=== PATIENT | male | born 2005 | race Caucasian/White ===

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

== ENCOUNTER 2023-08-22 22:44 | Emergency (ER) | payer SELFPAY ==
[2023-08-22 22:45] VITALS: BP 121/61; PULSE 68; RESP 18; TEMP 36.8; O2SAT 98; BMI 27.9
[2023-08-23 00:09] VITALS: BP 116/78; PULSE 70; RESP 15; TEMP 36.4; O2SAT 98
--- NOTE | 2023-08-23 01:11 | ED_ITS ---
HPI - Skin/Abscess/Foreign Bdy General Chief complaint: Skin/Abscess/Foreign Body Stated complaint: chemical burn on abdomen Time Seen by Provider: 08/23/23 00:10 Source: patient Mode of arrival: ambulatory Limitations: no limitations History of Present Illness ED Provider: Dr. Pauline Mack HPI narrative: Patient comes to the emergency room complaining of a chemical burn to the abdomen. Patient states that over 24 hours ago, patient was working with chemicals, spelled acetone on his shirt. Patient states that he was wearing a shirt in a back brace, spilled acetone on his shirt and did not take it off for several hours. Yesterday all day, patient was complaining of irritation in his skin on the abdomen. Patient's mother applied aloe vera. Patient states that the aloe vera made it worse. 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 Patient is unaware if he is up-to-date with Tdap Related Data Previous Rx's ?Medication ?Instructions ?Recorded bacitracin 500 unit/gram topical 1 appl topical 5XD #30 grams 08/23/23 ointment ibuprofen 600 mg tablet 600 mg PO Q8H PRN fever or pain 08/23/23 #20 tabs Allergies Allergy/AdvReac Type Severity Reaction Status Date / Time No Known Allergies Allergy Verified 08/22/23 22:48 [No Known Allergies*] Review of Systems Review of Systems: Constitutional : No Weight loss, No Fever, No Chills, No Night Sweats, No Fati roni, No Malaise ENT/Mouth : No Hearing loss, No Ear Pain, No Nasal Congestion, No Sinus Pain, No Hoarseness, No sore throat, No Rhinorrhea, No Swallowing Difficulty Eyes: No Eye Pain, No Swelling, No Redness, No Foreign Body, No Discharge, No Vision Changes Cardiovascular : No Chest Pain, No SOB, No Dyspnea on Exertion, No Orthopnea, No Edema, No Palpitations Respiratory : No Cough, No Sputum, No Wheezing, No Smoke Exposure, No Dyspnea Gastrointestinal : No Nausea, No Vomiting, No Diarrhea, No Constipation, No abdominal Pain, No Hematochezia, No Melena Genitourinary : no irregular bleeding, No Dysuria, No Urinary Frequency, No Hematuria, No Urinary Incontinence, No Urgency, No Flank Pain, No Urinary Flow Changes, No Hesitancy Musculoskeletal : No joint pain, No Myalgias, No Joint Swelling Skin : Complaining of a chemical burn to the abdomen with acetone Neuro : No Weakness, No Numbness, No Paresthesias, No Loss of Consciousness, No Dizziness, No Headache Psych : No Anxiety/Panic, No Depression, No SI/HI/AH/VH, No Social Issues, Heme/Lymph: No Bruising, No Bleeding,No Lymphadenopathy Endocrine : No Polyuria, No Polydipsia, No Temperature Intolerance PMFSH Social History Social History Smoked in Last 30 Days: No Advance Directives: No Advance Directives Information Provided: Yes Do you have a plan to hurt others: No Plan Physical Exam Vital Signs: Vital Signs: Last Vital Signs Temp 97.6 F 08/23/23 00:09 Pulse 70 08/23/23 00:09 Resp 15 08/23/23 00:09 BP 116/78 08/23/23 00:09 Pulse Ox 98 08/23/23 00:09 O2 Del Method Room Air 08/23/23 00:09 BMI result Body Mass Index 27.9 Const: Other: Appearance: Alert. Oriented X3. No acute distress. Eyes: Pupils equal, round and reactive to light. ENT: Pharynx normal. Neck: Normal inspection. Neck supple. No lymph nodes noted. No crepitus CVS: Normal heart rate and rhythm. Pulses normal. Normal S1 and S2 Respiratory: No respiratory distress. Breath sounds normal. No Wheezing. No rales Abdomen: Soft and nontender. No rigidity. No distention. Skin: In the lower abdomen below the umbilicus, there are multiple patches approximately 6 x 6 cm the biggest 1. No blisters Extremities: No lower extremity edema. No Lacerations. No Rash Neuro: Oriented X 3. No motor deficit. No sensory deficit. Moving all extremities. No slurred speech. CN 2 through 12 grossly intact Psych: calm, cooperative, normal affect Medical Decision Making Medical Decision Making MDM Narrative: Patient declined Tdap -bacitracin was applied to the abdomen -patient will follow-up with his primary care physician and with [facility] since this was work-related injury Discharge Plan Discharge Clinical Impression: Chemical burn Patient Disposition: Home, Self-Care Instructions: Chemical Skin Burn (ED) Additional Instructions: Please follow-up with your primary care physician tomorrow. If you have any worsening or new symptoms, please return to the emergency room or call 911 Prescriptions: New bacitracin 500 unit/gram ointment 1 appl topical 5XD Qty: 30 1RF ibuprofen 600 mg tablet 600 mg PO Q8H PRN (Reason: fever or pain) Qty: 20 0RF Referrals: Augustus Fowler MD [Physician] - 08/24/23 Print Language: Telugu
[2023-08-23] MEDS: Bacitracin Oint 0.9 GM PACKET 1 APPL TOPICAL (01:30)
[2023-08-23 01:36] VITALS: BP 111/78; PULSE 63; RESP 15; TEMP 37.1; O2SAT 98
== END 2023-08-23 01:40 | disposition home or self-care (01) ==
PROVIDERS: Emergency Provider Emergency Medicine
DX: T21.12XA Burn of first degree of abdominal wall, initial encounter (principal); T21.52XA Corrosion of first degree of abdominal wall, initial encounter; T32.0 Corrosions involving less than 10% of body surface; Y93.9 Activity, unspecified; Y92.89 Other specified places as the place of occurrence of the external cause; Y99.0 Civilian activity done for income or pay
CPT/HCPCS: 16000; 99283; 99284